=== PATIENT | female | born 1985 | race Caucasian/White ===

== ENCOUNTER 2020-08-27 16:11 | Emergency (ER) | payer BC, MEDICAID ==
--- NOTE | 2020-08-27 16:35 | EDM.PDOC ---
ED HPI GENERAL MEDICAL PROBLEM - General Stated Complaint: dog bite Time Seen by Provider: 08/27/20 16:34 Source of Information: Reports: Patient History Limitations: Reports: No Limitations - History of Present Illness INITIAL COMMENTS - FREE TEXT/NARRATIVE: 35-year-old female who states that about 3:30 PM today her service dog was playing with her and bit her on her left ear. There were superficial puncture wounds. She has clean the wound and applied antibiotic ointment and a Band-Aid and the bleeding has been controlled. She has some mild stinging in the area that she rates as a 3/10. It is worse with palpation. There were no other injuries. The patient is not up-to-date on her tetanus with her last tetanus immunization being in 2010. There are no other associated signs or symptoms. There are no other modifying factors. 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) - Related Data Allergies Allergy/AdvReac Type Severity Reaction Status Date / Time No Known Allergies Allergy Verified 03/17/19 09:36 Home Meds: Home Meds Amoxicillin/Clavulanate K [Augmentin 875-125 MG] 1 tab PO BID 7 Days #14 tablet 08/27/20 [Rx] Apixaban [Eliquis] 1 tab PO DAILY 08/27/20 [History] Fluticasone Propionate [Flonase] 2 spray VIN DAILY 08/27/20 [History] Venlafaxine HCl [Venlafaxine ER] 2 cap PO DAILY 08/27/20 [History] busPIRone [Buspar] 3 tab PO DAILY 08/27/20 [History] estradioL [Climara] 1 patch TOP WEEKLY 08/27/20 [History] hydrOXYzine pamoate [Hydroxyzine Pamoate] 1 tab PO Q4H PRN 08/27/20 [History] Past Medical History Respiratory History: Reports: Asthma, PE Psychiatric History: Reports: Anxiety, Depression Hematologic History: Reports: Anticoagulation Therapy (On Eliquis) Oncologic (Cancer) History: Reports: Ovarian Social & Family History - Tobacco Use Tobacco Use Status *Q: Unknown Ever Used Tobacco (Nonsmoker) - Alcohol Use Alcohol Use History: No ED ROS ENT - Review of Systems Review Of Systems: See Below Constitutional: Reports: No Symptoms HEENT: Reports: No Symptoms Respiratory: Reports: No Symptoms Cardiovascular: Reports: No Symptoms Endocrine: Reports: No Symptoms GI/Abdominal: Reports: No Symptoms : Reports: No Symptoms Musculoskeletal: Reports: No Symptoms Skin: Reports: Wound (Superficial dog bite to left ear) Neurological: Reports: No Symptoms Psychiatric: Reports: Anxiety Hematologic/Lymphatic: Reports: Easy Bleeding (On Eliquis) Immunologic: Reports: Other (Last tetanus immunization was in 2010) ED EXAM, ENT - Physical Exam Exam: See Below Exam Limited By: No Limitations General Appearance: Alert, WD/WN, Anxious Eye Exam: Bilateral Eye: EOMI, Normal Inspection Ears: Hearing Grossly Normal, Other (2 superficial puncture wounds to outer pinna of left ear) Nose: Normal Inspection, Normal Mucousa, No Blood Mouth/Throat: Normal Inspection, Normal Lips, Normal Oropharynx Head: Normocephalic, Other (Ear puncture wounds as above) Neck: Normal Inspection, Supple, Non-Tender, Full Range of Motion Respiratory/Chest: No Respiratory Distress, Lungs Clear, Normal Breath Sounds, No Accessory Muscle Use, Chest Non-Tender Cardiovascular: Normal Peripheral Pulses, Regular Rate, Rhythm (By my exam the patient's pulse rate was in the 100 range.), No Murmur GI/Abdominal: Normal Bowel Sounds, Soft, Non-Tender Back: Normal Inspection, Full Range of Motion Extremities: Normal Inspection, Normal Range of Motion, Non-Tender, No Pedal Edema, Normal Capillary Refill Neurological: Alert, Oriented, CN II-XII Intact, Normal Cognition, No Motor/Sensory Deficits Psychiatric: Anxious Skin: Warm, Dry, Normal Color, No Rash, Wound/Incision (2 superficial puncture wounds to the outer pinna of the left ear) Course - Vital Signs Last Recorded V/S: Last Vital Signs Temp 37.2 C 08/27/20 16:22 Pulse 104 H 08/27/20 16:22 Resp 20 08/27/20 16:22 BP 132/104 H 08/27/20 16:22 Pulse Ox 99 08/27/20 16:22 - Orders/Labs/Meds Orders: Active Orders 24 hr Category Date Time Status Vaccines to be Administered [RC] PER UNIT ROUTINE Care 08/27/20 16:45 Active Meds: Medications Discontinued Medications Generic Name Dose Route Start Last Admin Trade Name Ernstq PRN Reason Stop Dose Admin Amoxicillin/Clavulanate Potassium 1 tab 08/27/20 16:44 08/27/20 16:58 Amoxicillin/Clavulanate K 875-125 Mg Tab PO 08/27/20 16:45 1 tab ONETIME ONE Administration Diphtheria/Tetanus/Acell Pertussis 0.5 ml 08/27/20 16:44 08/27/20 16:58 Diphtheria,Pertussis(Acell),Tetanus Vaccine 0.5 Ml Syringe IM 08/27/20 16:45 0.5 ml .ONCE ONE Administration - Re-Assessments/Exams Free Text/Narrative Re-Assessment/Exam: 08/27/20 16:47: Superficial dog bite to left ear. She will be given a Tdap Immunization to bring her tetanus immunization status up-to-date. She will also be given Augmentin 875 mg by mouth now and prescription will be sent to her pharmacy for 875 mg twice a day for 7 days. Wound care instructions were given. Precautions and reasons for return to the emergency department were discussed with the patient while she was in the emergency department were detailed in the patient's discharge instructions. Departure - Departure Time of Disposition: 16:53 Disposition: Home, Self-Care 01 Condition: Good Clinical Impression: Dog bite of left ear Qualifiers: Encounter type: initial encounter Qualified Code(s): S01.352A - Open bite of left ear, initial encounter - Discharge Information Prescriptions: Amoxicillin/Clavulanate K [Augmentin 875-125 MG] 1 tab PO BID 7 Days #14 tablet Instructions: Animal Bite, Adult, [id number] Referrals: Olga Barbosa NP [Primary Care Provider] - Forms: ED Department Discharge Additional Instructions: Clean the wound with mild soap and water. Apply bacitracin and a Band-Aid to the area until the wound has closed over and then you can leave it open to air. Medication as prescribed (Augmentin 875 mg). This prescription was electronically sent to [facility]. You can take Tylenol as needed for pain. Back to the emergency department for redness in the area of the wound, increasing pain, fever or any other concerning sign or symptom. Sepsis Event Note (ED) - Focused Exam Vital Signs: Vital Signs Temp Pulse Resp BP Pulse Ox 08/27/20 16:22 37.2 C 104 H 20 132/104 H 99 - My Orders Last 24 Hours: My Active Orders 08/27/20 16:45 Vaccines to be Administered [RC] PER UNIT ROUTINE - Assessment/Plan Last 24 Hours: My Active Orders 08/27/20 16:45 Vaccines to be Administered [RC] PER UNIT ROUTINE
[2020-08-27] MEDS ORDERED: Diphtheria,Pertussis(Acell),Tetanus Vaccine 0.5 ML Syringe IM ONE (16:44)
[2020-08-27] MEDS ORDERED: Amoxicillin/Clavulanate K 875-125 MG Tab PO ONE (16:44)
== END 2020-08-27 17:25 | disposition home or self-care (01) ==
LOC: FB.ED 16:11
DX: S01.352A Open bite of left ear, initial encounter (principal); J45.909 Unspecified asthma, uncomplicated; Z86.711 Personal history of pulmonary embolism; Z23 Encounter for immunization; Z79.01 Long term (current) use of anticoagulants; Z79.899 Other long term (current) drug therapy; W54.0XXA Bitten by dog, initial encounter
CPT/HCPCS: 90471; 90715; 99283; A9270-GY